=== PATIENT | female | born 1955 | race African-American/Black ===

== ENCOUNTER → 2017-01-25 | Outpatient (CLI) | payer OTHER ==
[~2017-01-25] MED LIST: CIPRO OR; FLAGYL500 MG PO; IBUPROFEN 600600 M1 PO; KLOR-CON 1010 MEQ; LOTENSIN20 MG PO; LOTREL 10-20 M1 EACH PO; NASAL SPRAY30 ML; NEXIUM40 MG PO; NORCO 5-325 TA1 EACH PO; NORVASC 5 MG TAB5 MG PO; OMNIPRED5 ML; PHENERGAN 25 MG25 M1 PO; SPIRONOLACTONE25 M3 PO; VALACYCLOVIR1000 MG PO
== END ==
LOC: RAD 07:34
DX: Z12.31 Encounter for screening mammogram for malignant neoplasm of breast (principal)